=== PATIENT | female | born 1990 | race Caucasian/White ===

== ENCOUNTER 2018-08-13 14:28 | Emergency (ER) | payer MEDICAID ==
[~2018-08-13] VITALS: Ht 162.6 cm; Wt 71.2 kg
[2018-08-13 14:33] VITALS: BP 137/71; PULSE 81; RESP 18; Ht 162.6 cm; Wt 71.2 kg
--- NOTE | 2018-08-13 14:40 | ERD ---
ER Documentation Chief Complaint Chief Complaint R hand pain/swelling after dog bite at home last night HPI 28-year-old female, 19 weeks , presents to the emergency department, complaining of right hand pain and edema after a dog bite that occurred at home last night. The dog belongs to the patient and is mostly an indoor pet with all vaccines up-to-date including rabies. The attack was unprovoked. The patient states that since she got , the dog has displayed an aggressive behavior. The patient denies fever, no chills, no erythema, no active bleeding. ROS All systems reviewed and are negative except as per history of present illness. Allergies Allergies: Coded Allergies: No Known Allergy (Unverified , 08/13/18) FmHx Family History: No diabetes, No coronary disease Physical Exam Vitals Vital Signs Date Temp Pulse Resp B/P (MAP) Pulse Ox O2 O2 Flow FiO2 Time Delivery Rate 08/13/18 98.0 81 18 137/71 99 14:33 (93) Physical Exam Const: No acute distress Head: Atraumatic Eyes: Normal Conjunctiva ENT: Normal External Ears, Nose and Mouth. Neck: Full range of motion. No meningismus. Resp: Clear to auscultation bilaterally Cardio: Regular rate and rhythm, no murmurs Abd: Soft, non tender, non distended. Normal bowel sounds Skin: No petechiae or rashes Back: No midline or flank tenderness Ext: Right hand with multiple superficial abrasions on the dorsum. No active bleeding, no erythema warmth or tenderness, no foreign body seen. Neur: Awake and alert Psych: Normal Mood and Affect Results 24 hrs Current Medications Medications Dose Sig/Yas Start Time Status Last (Trade) Ordered Route PRN Stop Time Admin Dose Reason Admin Mupirocin 1 applic ONCE ONCE 08/13/18 DC 08/13/18 (Bactroban) TOP 15:00 08/13/18 15:01 15:01 Procedures/MDM Vital signs stable, Low suspicion for foreign body, tendon laceration, nerve damage, cellulitis, erysipelas, abscess. Physical examination and clinical presentation consistent most likely with dog bite of the right hand without evidence of infection. During the ED course the patient remained stable, no new complaints. Please schedule a follow up appointment with your primary doctor in 2 days for wound check. If the symptoms persist or worsen like severe pain, fever or signs of infection, return to the hospital immediately The patient is stable to be treated outpatient and will be discharged home with a sample of mupirocin, some side effects of prescribed medications (headache, rash, nausea, vomiting, diarrhea, drowsiness, habituation, bleeding, hypertension, interactions with other medications) were reviewed. Instructions explained and given directly by me to the patient with acknowledgment and demonstrated understanding. Disclaimer: Inadvertent spelling and grammatical errors are likely due to EHR/dictation software use and do not reflect on the overall quality of patient care. Also, please note that the electronic time recorded on this note does not necessarily reflect the actual time of the patient encounter. Departure Diagnosis: Primary Impression: Dog bite of right hand without complication Condition: Stable Additional Instructions: Thank you very much for allowing us to participate in your care. Your health and safety is our top priority at [facility]. Call your primary care doctor TOMORROW for an appointment during the next 2-4 days and bring all the information and medications prescribed. Have prescriptions filled and follow precisely the directions on the label. If the symptoms get worse and your provider is unavailable, return to the Emergency Department immediately. DOREEN MEEKS MD Aug 13, 2018 14:40
[2018-08-13] MEDS ORDERED: MUPIROCIN 2% 22 GM OINT TOP ONE (15:00)
== END 2018-08-13 15:44 | disposition home or self-care (01) ==
LOC: FTE 14:28
DX: O9A.212 Injury, poisoning and certain other consequences of external causes complicating pregnancy, second trimester (principal); S61.451A Open bite of right hand, initial encounter; W54.0XXA Bitten by dog, initial encounter; Y92.009 Unspecified place in unspecified non-institutional (private) residence as the place of occurrence of the external cause; Z3A.19 19 weeks gestation of pregnancy
CPT/HCPCS: Z7502; Z7610; 99282

== ENCOUNTER 2018-08-28 20:12 | Outpatient (CLI) | payer MEDICAID ==
[~2018-08-28] VITALS: Ht 160 cm; Wt 73.7 kg
[2018-08-28] MEDS ORDERED: LACTATED RINGER'S 1,000 ML IV ONE (21:30)
[2018-08-28] MEDS ORDERED: TERBUTALINE 1 MG/ML INJ SC ONE (21:30)
[2018-08-28] MEDS ORDERED: LACTATED RINGER'S 1,000 ML IV SCH (21:30)
[2018-08-28 22:06] VITALS: Ht 160 cm; Wt 73.7 kg
[2018-08-28] MEDS ORDERED: PREN1TAB13 PO (22:10)
--- NOTE | 2018-08-29 00:32 | PN ---
Triage Information Date/Time Aug 29, 2018 Reason for visit: Uterine contractions Weeks of Gestation 21w 4d /Para 1/0 Diabetes: none Hypertention: none Additional information Pt c/o lower abdominal pain x 2 weeks. No leaking or bleeding. Had intercourse less than 24 hours ago. PMHx: none. PSHx: none. NKDA. Objective T=98.6 BP 115/68 Heart Rate: 150's Heart Rate Comments Accels to 165 bpm. No decels. Contractions: >10 Minutes Apart Results/Medications Results 24 hrs Laboratory Tests Test 08/28/18 21:30 Urine Color STRAW Urine Clarity CLEAR Urine pH 7.0 Urine Specific [place] 1.006 Urine Ketones NEGATIVE Urine Nitrite NEGATIVE Urine Bilirubin NEGATIVE Urine Urobilinogen NEGATIVE Urine Leukocyte Esterase NEGATIVE Urine Hemoglobin NEGATIVE Urine Glucose NEGATIVE Urine Total Protein NEGATIVE Fibronectin NEGATIVE Medications Current Medications Lactated Ringer's 1,000 ml @ 125 mls/hr Q8H IV ; Start 08/28/18 at 21:30 Imaging Results Cervical length 3.4 cm and closed. Disposition: Discharge Assessment/Plan A: IUP at 21w 5d. False labor. P: Pt was given IV hydration and one dose of terbutaline and reports now feeling no discomfort at all and is ready for d/c. PTL precautions reviewed and also recommend pelvic rest x 3-4 weeks. MARIETTA WOODALL MD Aug 29, 2018 00:14
== END 2018-08-29 00:30 | disposition home or self-care (01) ==
LOC: OBT 20:12 → L-D 20:14 → OBT 08-29 00:30
PROVIDERS: ATTEND Obstetrics & Gynecology
DX: O62.9 Abnormality of forces of labor, unspecified (principal); Z3A.21 21 weeks gestation of pregnancy
CPT/HCPCS: 36415; 76817; 81003; 82731; 96360; J3105; J7120; Z7500; G0463